=== PATIENT | male | born 1990 | race Caucasian/White ===

== ENCOUNTER 2020-10-22 08:05 | Emergency (ER) | payer SELFPAY ==
[~2020-10-22] VITALS: Ht 165.1 cm; Wt 79.0 kg
[2020-10-22 08:09] VITALS: BP 132/82
== END 2020-10-22 08:50 ==
LOC: ER 08:16
DX: R51.9 Headache, unspecified (principal); F10.129 Alcohol abuse with intoxication, unspecified; Y90.9 Presence of alcohol in blood, level not specified
CPT/HCPCS: 99283